=== PATIENT | female | born 2000 | race Caucasian/White ===

== ENCOUNTER 2023-06-18 15:20 | Outpatient (CLI) | payer OTHER, SELFPAY | END 2023-06-18 15:21 | disposition home or self-care (01) | LOC: AMB 07-16 10:12 | PROVIDERS: Visit Provider Family Medicine | DX: R45.851 Suicidal ideations (principal); T43.591A Poisoning by other antipsychotics and neuroleptics, accidental (unintentional), initial encounter | CPT/HCPCS: A0425; A0427 ==

== ENCOUNTER 2023-06-18 15:49 | Emergency (ER) | payer OTHER, SELFPAY ==
[2023-06-18] VITALS (15 sets, daily range): BP systolic 106–121; BP diastolic 70–88; PULSE 76–91; RESP 18; TEMP 37.6; O2SAT 97–99; BMI 19.2
--- NOTE | 2023-06-18 16:22 | ED.NURSE ---
Reported ingestion to poison control who recommend running Tylenol and Aspirin levels and monitoring patient for symptoms of tiredness for two hours.
--- NOTE | 2023-06-18 16:24 | ED.GENADULT ---
HPI - General Adult General Chief complaint: Overdose Stated complaint: OD Time Seen by Provider: 06/18/23 15:54 History of Present Illness HPI narrative: This 22-year-old female takes Lexapro and hydroxyzine for symptoms of anxiety and depression. She has had some circumstances recently that caused more anxiety for her. She took a couple tablets of hydroxyzine 10 mg this morning hopefully to help with some of this anxiety. She was not feeling much relief and later took 5 more tablets of 10 mg hydroxyzine. Then about 2 hours prior to arrival here she took another 5 tablets. She is not feeling fatigued. She talked with a friend who stated that it sounded like a lot of pills. The friend called the ambulance and she comes in for evaluation. She did not take these in an attempt to hurt herself at all and has no history of doing such. She denies any sense or feelings of suicidality. She denies using any street drugs or alcohol and has not taken any other [id number] or prescription drugs other than her control and Lexapro. She states that she feels some anxiety yet but does not have any other symptoms. Related Data Previous Rx's Medication Instructions Recorded lorazepam 0.5 mg tablet (Ativan) 0.5 mg PO BID PRN #10 tabs 06/18/23 Allergies Allergy/AdvReac Type Severity Reaction Status Date / Time No Known Drug Allergies Allergy Verified 06/18/23 16:19 Review of Systems Status of ROS: Reports: 10 or more systems reviewed and unremarkable except as noted in History and below Narrative: Constitutional: No fevers, no weight gain or loss. Eyes: No discharge. No vision changes. HENT: No congestion, no sore throat, no ear pain. Cardiovascular: No chest pain, no palpitations. Respiratory: No shortness of breath, no wheezes, no cough. Gastrointestinal: No abdominal pain, no vomiting, no diarrhea. Genitourinary: No dysuria, no hematuria. Musculoskeletal: Normal range of motion. Skin: No rashes, no pruritis. Neurological: No dizziness, weakness, sensory change, speech change. Endo/Heme/Allergies: No bruising or bleeding. No polydipsia. Pysch: no suicidality, no insomnia. Depression and anxiety symptoms with recent circumstances that have caused increased anxiety. All other systems reviewed and are negative. PFSH PFSH Social History Smoking Status: Never smoker How often do you have a drink containing alcohol: never How often do you have six or more drinks on one occasion: Never AUDIT-C Alcohol total score: 0 Non-prescribed substance use: denies use Exam Narrative: Exam Narrative: Constitutional: Well-developed, well-nourished, no acute distress. HEENT: Normocephalic, atraumatic. Neck: Normal range of motion. Nontender. Supple. Heart: Regular. No murmurs. Normal rate. Intact distal pulses. Lungs: Clear to auscultation. No chest discomfort. No wheezes, rhonchi, or rales. Abdomen: Normal bowel sounds. Nontender. No rebound tenderness. Genitalia: Deferred. Back: No midline tenderness. Normal range of motion. Extremities: Normal range of motion. No injury. Skin: Intact. No rash. Warm. No erythema or pallor. Neurologic: No altered sensation. No weakness. Alert and oriented. Psychiatric: No suicidality. No insomnia. Nursing notes and vitals signs are reviewed. Const: Vital Signs, click to edit/add: Vital Signs - 24 hr 06/18/23 15:57 06/18/23 16:14 06/18/23 16:15 Temperature 99.7 F H Pulse Rate 77 79 Pulse Rate [Pulse Oximeter] 87 Respiratory Rate 18 Blood Pressure Blood Pressure [Le ft Upper Arm] 114/75 Pulse Oximetry 97 97 97 Oxygen Delivery Sc thod Room Air 06/18/23 16:30 06/18/23 16:31 06/18/23 16:45 Temperature Pulse Rate 79 90 76 Pulse Rate [Pulse Oximeter] Respiratory Rate Blood Pressure 115/88 Blood Pressure [Le ft Upper Arm] Pulse Oximetry 97 98 98 Oxygen Delivery Me thod 06/18/23 17:00 06/18/23 17:01 06/18/23 17:15 Temperature Pulse Rate 87 80 80 Pulse Rate [Pulse Oximeter] Respiratory Rate Blood Pressure 111/75 Blood Pressure [Le ft Upper Arm] Pulse Oximetry 97 97 97 Oxygen Delivery Me thod Course Vital Signs Vital signs: Initial Vital Signs Temperature 99.7 F H 06/18/23 15:57 Temperature Source Temporal Artery Scan 06/18/23 15:57 Pulse Rate 87 06/18/23 15:57 Respiratory Rate 18 06/18/23 15:57 Respiratory Effort Normal, Spontaneous, Non-Labored 06/18/23 15:57 Respiratory Depth Normal 06/18/23 15:57 Respiratory Pattern Normal 06/18/23 15:57 Blood Pressure 114/75 06/18/23 15:57 Blood Pressure Mean 88 06/18/23 15:57 Pulse Oximetry 97 06/18/23 15:57 Oxygen Delivery Method Room Air 06/18/23 15:57 Vital Signs Temperature 99.7 F H 06/18/23 15:57 Pulse Rate 87 06/18/23 15:57 Respiratory Rate 18 06/18/23 15:57 Blood Pressure 114/75 06/18/23 15:57 Pulse Oximetry 97 06/18/23 15:57 Oxygen Delivery Method Room Air 06/18/23 15:57 Temperature 99.7 F H 06/18/23 15:57 Pulse Rate 80 06/18/23 17:15 Respiratory Rate 18 06/18/23 15:57 Blood Pressure 111/75 06/18/23 17:01 Pulse Oximetry 97 06/18/23 17:15 Oxygen Delivery Method Room Air 06/18/23 15:57 Medical Decision Making MDM Narrative Medical decision making narrative: This patient took perhaps 10 or 12 tablets of hydroxyzine 10 mg in an attempt to do with extra anxiety today because of some circumstances that occurred. She thought that it might have been an overdose after doing this and ended being brought here for evaluation. Poison control was contacted and they recommended observation for an hour and a half for so. The patient states that she does not have any symptoms other than some of the same anxiety that pre existed all this. She is pleasant and cooperative. She has maintained normal vital signs throughout her stay here. She is okay to be discharged home. I did offer Ativan which she declined in the visit here but did agree to a prescription for a few tablets to be used occasionally as needed for anxiety symptoms such as has occurred today. She is taking Lexapro as prescribed. Discharge Plan Discharge Clinical Impression: Feared condition not demonstrated Patient Disposition: Home w/ Parent or Adult Condition: Stable Additional Instructions: Take medication as needed and indicated. Follow up with MD or return if worsening. Prescriptions: New lorazepam [Ativan] 0.5 mg tablet 0.5 mg PO BID PRNQty: 10 0RF Follow Up/Referrals: Provider,Not a Local [Primary Care Provider] - Stand Alone Forms: [facility] Info Instructions
--- NOTE | 2023-06-18 16:24 | ED.NURSE ---
Was given permission by patient to update her mother via telephone on plan of care.
--- NOTE | 2023-06-18 18:30 | ED.NURSE ---
Poison control called back for updated on Pt. Recommended Acetaminophen level prior to discharge, Dr. Rodgers aware. No further orders received.
== END 2023-06-18 18:37 | disposition home or self-care (01) ==
PROVIDERS: Emergency Provider Emergency Medicine Emergency Medical Services
DX: Z71.1 Person with feared health complaint in whom no diagnosis is made (principal)
CPT/HCPCS: 99283; 99284